=== PATIENT | male | born 1960 | race Hispanic/Latino ===

== ENCOUNTER 2023-03-17 23:33 | Inpatient (IN) | payer BC ==
[2023-03-18] MEDS ORDERED: Sodium Chloride 0.9% 2,000 ML ONE (00:12)
[2023-03-18 00:31] LABS: Band 5 % (5-11); Eosinophils 2 % (0-10); Hematocrit 39.6 % (42.0-52.0); Hemoglobin 14.3 g/dL (14.0-18.0); Lymphocytes 18 % (21-51); MDiff Complete? YES; Mean Corpuscular Hemoglobin 34.2 pg (27.0-31.0); Mean Corpuscular Volume 95.1 fl (78.0-98.0); Mean Platelet Volume 7.3 fL (7.4-10.4); Monocytes 7 % (0-10); Neutrophil 68 % (42-75); Platelet Adequacy Comment Appears Adequate; Platelet Count 221 10x3/uL (130-400); RBC Distribution Width 12.2 % (11.5-14.5); Red Blood Cell (RBC) Count 4.16 mill/uL (4.70-6.10); White Blood Cell (WBC) Count 6.7 10x3/uL (4.8-10.8)
[2023-03-18 00:34] LABS: ALT (SGPT) 36 U/L (8-55); AST (SGOT) 32 U/L (5-34); Albumin 4.4 g/dL (3.4-4.8); Alkaline Phosphatase 75 U/L (40-110); Anion Gap 18 mmol/L (10-20); BUN (Urea Nitrogen) 61 mg/dL (8.4-25.7); Bilirubin, Total 0.9 mg/dL (0.2-1.2); CK (CPK) 314 U/L (30-200); Calc. Creatinine Clearance 0 mL/min (70-130); Calcium 9.4 mg/dL (7.8-10.44); Carbon Dioxide 18 mmol/L (23-31); Chloride 103 mmol/L (98-107); Estimated GFR 15; Globulin 3.2 g/dL (2.4-3.5); Glucose 112 mg/dL (80-115); Potassium 4.1 mmol/L (3.5-5.1); Protein, Total 7.6 g/dL (5.8-8.1); Sodium 135 mmol/L (136-145)
[2023-03-18] MEDS ORDERED: Lactated Ringer's 1,000 ML ONE ×2 (01:34→06:11)
[2023-03-18 02:35] VITALS: BMI 27.8
[2023-03-18 02:58] VITALS: BP 99/62; TEMP 97.6
[2023-03-18] MEDS ORDERED: Pantoprazole 40 MG VIAL ONE (05:03)
[2023-03-18] MEDS ORDERED: Sodium Chloride 0.9% 100 ML ONE (05:03)
[2023-03-18 05:23] LABS: Hematocrit 33.8 % (42.0-52.0); Hemoglobin 11.7 g/dL (14.0-18.0)
[2023-03-18] MEDS ORDERED: HUM PROTHROMBIN CPLX(PCC) 1,000 UNITS VIAL ONE (05:30)
[2023-03-18] MEDS ORDERED: Human Prothrombin Complx(PCC) 500 UNITS VIAL ONE (05:30)
== END 2023-03-18 04:40 | disposition home or self-care (01) | DRG 378 ==
LOC: MADERS 23:33 → MADMS 03-18 01:41
PROVIDERS: ADMIT Family Medicine; ATTEND Family Medicine
PROC: 30283B1 Transfusion of Nonautologous 4-Factor Prothrombin Complex Concentrate into Vein, Percutaneous Approach (ICD-10-PCS; principal; 2023-03-18)
DX: K92.2 Gastrointestinal hemorrhage, unspecified (principal); N17.9 Acute kidney failure, unspecified; I48.91 Unspecified atrial fibrillation; E86.0 Dehydration; I10 Essential (primary) hypertension; Z90.49 Acquired absence of other specified parts of digestive tract
CPT/HCPCS: 80053; 82274; 82550; 83605; 83880; 85025; C9113; J7050; J7120; J7168